=== PATIENT | male | born 1955 | race Caucasian/White ===

== ENCOUNTER 2024-04-08 06:47 | Emergency (ER) | payer BC, SELFPAY ==
--- NOTE | 2024-04-08 07:21 | ED.GENMED ---
History of Present Illness
General
Chief Complaint: Allergic Reaction
Source: patient and family
Exam Limitations: none
Time Seen by Provider: 04/08/24 07:04
Nursing documentation reviewed up to this point in time: agreed with except (Patient without tongue swelling)
History of Present Illness
History of Present Illness:
68-year-old male presents with lip swelling, after eating honey nut Cheerios yesterday he is eating honey nut Cheerios for previously without any issue, though he did have some nuts a few weeks ago and had some itching and swelling of his hand, got
better with Benadryl, he also takes losartan chronically, he has no itching today, no abdominal pain no tongue swelling, no rash
Past History
Past History
ED Past Medical History: HTN
Social History
Tobacco: Non-smoker
Alcohol: None
Personal:
Living: with family
Review of Systems
Review of Systems
All Other Systems: Not applicable
EENT: Reports mouth swelling (Lip swelling not tongue swelling); Denies mouth pain
Respiratory: Denies cough or trouble breathing
: Reports no symptoms
Skin: Denies itching or rash
Neurological: Reports no symptoms
Phy Exam
Physical Exam
Physical Exam:
Physical Exam
General: no apparent distress, not acutely ill
Neck: Marked swelling of the upper and lower lips, no tongue involvement no trismus no apparent dental infection
Heart: s1/s2 regular rate and rhythm, no murmur. equal radial pulses.
Lungs: no acute respiratory distress. No wheeze
Abdomen: normal bowel sounds. not tender. no CVAT
Neuro: alert and oriented. no focal neurological deficits
Skin: no rash
Psychiatric: well kept. interactive and cooperative
Extremities: no edema.
Course
Orders/Labs/Results
Orders:
Orders
04/08/24 07:15
Dexamethasone Sod Phosphate [Decadron] 10 mg IV NOW STA
Diphenhydramine [Benadryl] 50 mg IV NOW STA
EPINEPHrine PF [Adrenalin] 0.3 mg IM NOW STA
Famotidine [Pepcid] 20 mg IV NOW STA
Vital Signs
Initial and Last Documented VS:
Initial Vital Signs
Temp Pulse Resp Pulse Ox
97.4 F 132 28 98
04/08/24 06:49 04/08/24 06:49 04/08/24 06:49 04/08/24 06:49
Last Documented Vital Signs
Temp Pulse Resp BP Pulse Ox
97.4 F 107 18 126/74 95
04/08/24 06:49 04/08/24 08:22 04/08/24 08:22 04/08/24 08:22 04/08/24 08:22
MDM/Problems Addressed
Differential Diagnosis Includes:
ARB angioedema, allergic reaction to honey nut Cheerios, nonspecific rash,
MDM/Problems Addressed:
Lip swelling
Chronic conditions affecting care: HTN
Acute Exacerbation and/or Progression of Chronic Illness: HTN
*Critical Care Note
Total Time (30-74mins, 75-104mins- exclusive of procedures): Not Applicable
Update Note
Update Note:
Update, literature review there are cases of angiotensin II angioedema, I suspect this is more likely than reaction to honey nut Cheerios prickly because the symptoms are localized to his lips he does not have any hives no itching
Will treat with steroids Benadryl epi we will tell him to hold his Cozaar
1100
pt feeling better, less swelling
ED Attending Note
-
Portions of this chart may have been created with voice recognition software.� Occasional wrong word or��sound alike� substitutions may have occurred due to the inherent limitations of voice recognition software.
Discharge Plan
Departure
Patient Disposition: Home (Routine Discharge)
Date of Disposition: 04/08/24
Time of Disposition: 11:00
Patient with high blood pressure during this ER visit?: Yes
Condition: Good
Discharge Problem:
Angio-edema
Instructions: Angioedema, BLOOD PRESSURE
Prescriptions:
New
amlodipine 5 mg tablet
5 mg PO DAILY Qty: 30 2RF
Referrals:
Quan Valle, DO [Family Provider] -
Activity Restrictions/Additional Instructions:
Stop your losartan blood pressure medicine
Start amlodipine 5 mg a day
Follow-up with your primary care provider, return to the ER for worsening symptoms
You can use Benadryl every 4-6 hours for mild swelling
Interventions
Interventions:
*Risk Screen - Suicide Last Done: 04/08/24 06:49
*General Assessment Last Done: 04/08/24 08:24
*Neglect/Abuse Screening Last Done: 04/08/24 06:49
ED- Fall Risk Assessment Last Done: 04/08/24 08:22
*ED COVID-19 Vaccine History Last Done: 04/08/24 08:24
ED- Cardiac Assessment Last Done: 04/08/24 08:22
ED- Pulmonary Assessment Last Done: 04/08/24 08:22
ED-Skin Assessment Last Done: 04/08/24 08:22
Discharge Date and Time
Print Language: [id number]
[2024-04-08] MEDS: BENADRYL 50 MG IV (07:25)
[2024-04-08] MEDS: DECADRON 10 MG IV (07:28)
[2024-04-08] MEDS: PEPCID 20 MG IV (07:32)
[2024-04-08] MEDS: ADRENALIN 0.3 MG IM (07:38)
[2024-04-08 08:22] VITALS: BP 126/74
== END 2024-04-08 11:18 | disposition home or self-care (01) ==
LOC: EMR 06:47
PROVIDERS: EMERGENCY PHYSICIAN Emergency Medicine; FAMILY PHYSICIAN Family Medicine
DX: T78.3XXA Angioneurotic edema, initial encounter (principal); I10 Essential (primary) hypertension; Z79.899 Other long term (current) drug therapy; Z88.1 Allergy status to other antibiotic agents
CPT/HCPCS: 99284; 96374; 96375 ×2; 96372